=== PATIENT | female | born 1955 | race Caucasian/White ===

== ENCOUNTER 2018-10-26 19:52 | Emergency (ER) | payer MEDICARE, MEDICAID ==
[~2018-10-26] VITALS: Ht 172.7 cm; Wt 90.0 kg
[~2018-10-26 19:52] MED LIST: ALBU8.5H8 IH; ASPI81TA52 PO; CODE118S4 PO; GABA-530 PO; HYDR-4353 PO; IPRA3AMP9 NEB; LORA0.5T PO; METO25TA6 PO; NITR0.4T48 SL; SIMV10TA6 PO
[2018-10-26 20:12] VITALS: BP 138/97
[2018-10-26] MEDS ORDERED: HYDROcodone/acetaminophen 10/325mg tab PO ONE (20:35)
[2018-10-26] MEDS ORDERED: ketorolac trometh. 30mg/ml inj. IM ONE (20:35)
[2018-10-26] MEDS ORDERED: acetaminophen 325mg tablet PO ONE (20:35)
[2018-10-26] MEDS ORDERED: HYDR-4353 PO (20:38)
== END 2018-10-26 21:12 | disposition home or self-care (01) ==
LOC: ER 19:53
DX: M25.551 Pain in right hip (principal); G89.29 Other chronic pain; F15.90 Other stimulant use, unspecified, uncomplicated; Z56.0 Unemployment, unspecified; Z87.09 Personal history of other diseases of the respiratory system; Z79.82 Long term (current) use of aspirin; Z79.899 Other long term (current) drug therapy
CPT/HCPCS: 96372; 99283; J1885

== ENCOUNTER 2023-07-20 10:21 | Emergency (ER) | payer BC, MEDICAID ==
[~2023-07-20] VITALS: Ht 170.2 cm; Wt 81.4 kg
[~2023-07-20 10:21] MED LIST changes: +ALBU8.5H17 IH; -ALBU8.5H8 IH; +BACL10TA2 PO; +CHOL10006 PO; -CODE118S4 PO; +CRAN450T4 PO; +DOCU-391 PO; +FLUT1BLS16 INH; -GABA-530 PO; +GABA300C PO; +GUAI600T45 PO; +IBUP-1986 PO; +IPRA3AMP31 IH; -IPRA3AMP9 NEB; -LORA0.5T PO; -METO25TA6 PO; +MIRA25TA PO; -NITR0.4T48 SL; +SENN15TA PO; +SERT-434 PO; -SIMV10TA6 PO; +SIMV10TA98 PO; +TRAZ-251 PO
[2023-07-20 10:24] VITALS: BP 141/78; TEMP 98.8
[2023-07-20 11:31] LABS: BILIRUBIN,URINE NEGATIVE (Neg); CLARITY,URINE CLEAR (Clear); COLOR,URINE YELLOW (Yellow); GLUCOSE, URINE NEGATIVE (Neg); KETONES,URINE NEGATIVE (Neg); LEUKOCYTE ESTERASE ,URINE SMALL (Neg); NITRITES, URINE POSITIVE (Neg); OCCULT BLOOD,URINE NEGATIVE (Neg); PROTEIN,URINE NEGATIVE (Neg); UROBILINOGEN,URINE 0.2 E.U/dL (0.2-1.0)
[2023-07-20 11:35] LABS: UA COLLECTION TYPE CLN CATCH MIDSTREAM
[2023-07-20 11:36] LABS: BACTERIA,URINE 2+ /HPF (Neg); MUCUS STRANDS FEW /LPF (Neg); RBC,URINE 0-2 /HPF (0-2); SQUAMOUS EPITHELIAL CELL,UR FEW /LPF (FEW)
[2023-07-20] MEDS: albuterol 2.5 MG/3 ML nebule NEB ONE (12:41)
[2023-07-20 12:45] VITALS: PULSE 60; PULSE 69; RESP 22; O2SAT 96; O2SAT 99
[2023-07-20] MEDS ORDERED: ALB0.5UD NEB (12:48)
[2023-07-20] MEDS ORDERED: AMOX-580 PO (12:48)
== END 2023-07-20 13:08 | disposition home or self-care (01) ==
LOC: ER 10:21
DX: J44.1 Chronic obstructive pulmonary disease with (acute) exacerbation (principal); N39.0 Urinary tract infection, site not specified; F15.90 Other stimulant use, unspecified, uncomplicated; Z79.899 Other long term (current) drug therapy; Z79.2 Long term (current) use of antibiotics; Z79.82 Long term (current) use of aspirin
CPT/HCPCS: 81001; 87088; 94640; 94760; 99284

== ENCOUNTER 2024-12-05 18:18 | Emergency (ER) | payer MEDICARE, MEDICAID ==
[~2024-12-05] VITALS: Ht 167.6 cm; Wt 77.3 kg
[2024-12-05 18:21] VITALS: BP 150/78; PULSE 68; O2SAT 93
--- NOTE | 2024-12-05 20:32 | Physician Documentation ---
History of Present Illness ~ Chief Complaint: Back Pain Stated Complaint: BACK PAIN Time Seen by MD: 19:48 Primary Medical Doctor: MINA SOTOMAYOR Source: patient Mode of Arrival: EMS Exam Limitations: no limitations HPI With history of lumbar spine surgery January 2024 presents secondary to right- sided lower back pain. She states that pain exacerbated yesterday. She woke up with it. Denies trauma. Pain is on the entire right side of her body from her shoulder to her buttock. She has no urinary symptoms. She denies incontinence or retention. States she was at her primary care provider's office on November 25 and received a Toradol shot for similar symptoms. Medication Reconciliation Allergies: Coded Allergies: No Known Allergies (Unverified , 07/20/23) Scheduled Aspirin (Aspirin EC), 1 TABLET PO QAM, (Reported) Baclofen (Baclofen), 1 TAB PO BID, (Reported) Cholecalciferol (Vitamin D), Unknown Dose PO DAILY, (Reported) Cranberry Extract (Cranberry), Unknown Dose PO DAILY, (Reported) Docusate Sodium (Docusate Sodium), 2 CAP PO DAILY, (Reported) Fluticasone/Umeclidin/Vilanter (Trelegy Ellipta 200-62.5-25), 1 PUFFS INH DAILY, (Reported) Gabapentin (Neurontin), 1 CAP PO BID, (Reported) Guaifenesin (Mucinex), 600 MG PO Q12H Ibuprofen (Ibuprofen), 1 TAB PO BID, (Reported) Mirabegron (Myrbetriq), 1 TAB PO DAILY, (Reported) Sertraline HCl (Sertraline HCl), 1 TAB PO DAILY, (Reported) Simvastatin (Simvastatin), 1 TABLET PO HS, (Reported) Scheduled PRN Albuterol Sulfate (Proair Hfa), 2 PUFFS IH Q4H PRN for SOB or wheezing, (Reported) Hydrocodone Bit/Acetaminophen ([place] 10-325 Tablet), 1 TAB PO BID PRN for moderate or severe pain, (Reported) Ipratropium/Albuterol Sulfate (Duoneb 2.5-0.5 Mg/3 Ml Soln), 3 ML IH Q4H PRN for SOB or wheezing Sennosides (Ex-Lax), 2 DAY PO DAILY PRN for constipation, (Reported) Trazodone HCl (Trazodone HCl), 1 TAB PO HS PRN for insomnia, (Reported) Past Medical History Past Medical History: COPD, Emphysema, Pneumonia, Chronic Pain Past Surgical History: orthopedic surgeries Patient History: Patient reports no known family medical history. Alcohol Use: None Lives with: Spouse Lives In: Home Occupation: unemployed Review of Systems ROS Review of systems negative except documented in HPI. Physical Exam Physical Exam Vital Signs: Temperature: 97.8, Source: Oral, Heart Rate: 68, Respiratory Rate: 22, BP: 150/78, Pulse Oximetry: 93, Weight: 77.270 Oxygen Flow Rate: 0 Pulse Oximetry Reflects: adequate oxygenation Physical Exam General: Awake, alert, oriented. No apparent distress Respiratory: Lungs are clear to auscultation bilaterally. No respiratory distress. Chest: Normal shape and size. No accessory muscle use. Cardiovascular: Regular rate and rhythm. S1-S2. No murmur, gallop, rub. Gastrointestinal: Abdomen is soft. Nontender to palpation. Bowel sounds present. Back: No rashes on inspection. No lumbar/thoracic point tenderness or step off. No obvious deformity. Muscle strength LE is normal and equal bilaterally. ROM was limited by pain on exam. Patellar reflex is normal. Neurologic: Alert and oriented x4. Nonfocal. Moving all extremities. Psychiatric: Normal mood and affect. Skin: Normal color. Warm and dry. Progress Progress Note Patient was re-evaluated after receiving pain medicaiton. she reported improvement in symptoms and requested to go home,. Results/Orders Results/Orders Completed Orders - JAMISON RIVERS NP Ketorolac Trometh 15mg/Ml Vial (Toradol (12/05/24 20:30) Hydrocodone/Apap 10/325 ([place] 10/325mg (12/05/24 20:30) Baclofen Tablet (Lioresal Tablet) (12/05/24 21:25) Morphine 4mg/Ml Inj. (Morphine Inj.) (12/05/24 22:02) Vital Signs 12/05/24 12/05/24 12/05/24 12/05/24 18:21 20:45 20:46 22:26 Temp 97.8 97.8 Pulse 68 Resp 22 18 18 B/P (MAP) 150/78 Pulse Ox 93 O2 Flow Rate 0 EKG/XRAY/CT/US/VASC/MRI CT : Interpreted By: self CT: L-spine With Contrast?: No Impression [address], [facility] [address] CAT SCAN Patient: JOSE ROBERTO PIERRE Medical Record: [id number] [facility] : 1955, Age: 69 Sex: Female Location: ER Patient Status: [facility] ER Service Date/Time: 12/05/241905 Ordering Physician: COCO GARCIA DO Exam: CT LUMBAR SPINE EXAM: CT CT LUMBAR SPINE INDICATION: pain backyard TECHNIQUE: Axial images of the lumbar spine have been obtained along with coronal and sagittal reformatted images. CT scans at this facility use dose modulation, iterative reconstruction, and/or weight based dosing when appropriate to reduce radiation dose to as low as reasonably achievable. COMPARISON: None FINDINGS: ANATOMY: Five lumbar-type vertebral bodies are present. The most inferior well- formed disc space will be referred to as L5-S1 for purposes of numbering in this report. VERTEBRAL BODIES: No CT evidence of an acute fracture. Posterior and anterior fusion from L4-S1. No osseous lucency along the hardware bone interfaces. No perihardware fracture. Relative bony foraminal narrowing most conspicuous at L3- 4 and L4-5 SPINAL CANAL: No spinal canal narrowing. INTERVERTEBRAL DISCS: Trace posterior disc osteophyte complex at L1-2, L2-3. FACETS: Multilevel mild facet arthropathy. OTHER: Sigmoid diverticulosis. Left renal sinus cysts. Vascular calcifications. IMPRESSION: 1. No CT evidence of an acute fracture. 2. Posterior and anterior fusion from L4-S 3. Relative bony foraminal narrowing most conspicuous at L3-4 and L4- Electronically Signed by:RINKU BELTRAN MD Date & Time: 12/05/242043 Dictated by: RINKU BELTRAN MD Dictation date and time: 12/05/242043 Primary Care Provider: NO PRIMARY CARE PROVIDER cc: VELVETKATHERINCOCO M DO ~ Medical Decision Making Findings Patient presents secondary to back pain which is chronic for her. She did undergo a CT scan given her recent surgery with no acute surgical emergency at this time. Not taken her home pain medication since this morning. She therefore was given her usual medications which included [place] and baclofen. Additionally she was given a shot of Toradol. These did not significantly help her pain and she therefore was given a shot of IM morphine. She reported improvement in her symptoms and was able to ambulate out of the emergency department. In fact, she had requested to go home. She was educated not to drive. Questions answered. Discharge from the emergency department in stable condition. Patient exhibit any signs of acute spinal emergency. Low clinical suspicion for acute fracture given lack of trauma. No current evidence for cauda equina as there are no urinary or bowel incontinence or retention. No complaints of pares thesia to the perineal area when asked. Low clinical suspicion for abdominal aortic aneurysm, pulmonary embolism given location and description of pain. No evidence of pyelonephritis she is afebrile. She did not have CVA tenderness on exam. Suspect acute exacerbation of her chronic pain. Was provided with pain control and on reassessment had improvement in symptoms. Departure Time of Disposition: 22:24 Disposition: 01 HOME / SELF CARE / HOMELESS Impression: Primary Impression: Low back pain Qualified Codes: M54.50 - Low back pain, unspecified; G89.29 - Other chronic pain Condition: Stable Discharge Instructions: Chronic Back Pain Additional Instructions: CT scan did not reveal any acute abnormality of the back. Please follow up with your doctor with regards to your back pain. Please return for new or worsening s ymptoms. Referrals: NO PRIMARY CARE PROVIDER (PCP) Signature Scribe Signature: No scribe Attestation: The note accurately reflects work and decisions made by me.Jamison Sales NP 12/06/24 16:02 This note was created with the assistance of voice recognition software whereby errors in grammar, syntax, and/or spelling may have occurred despite active proofreading efforts by the author. Please do not hesitate to contact the [facility] for clarification or for questions regarding the content of this document. JAMISON RIVERS NP Dec 05, 2024 20:32
[2024-12-05] MEDS: HYDROcodone/acetaminophen 10/325mg tab PO ONE (20:45)
[2024-12-05 20:46] VITALS: RESP 18
[2024-12-05] MEDS: ketorolac trometh 15mg/ml vial 15 MG/ML ML IM ONE (20:46)
--- NOTE | 2024-12-05 20:46 | RADIOLOGY REPORT ---
EXAM: CT CT LUMBAR SPINE INDICATION: pain backyard TECHNIQUE: Axial images of the lumbar spine have been obtained along with coronal and sagittal reformatted images. CT scans at this facility use dose modulation, iterative reconstruction, and/or weight based dosing when appropriate to reduce radiation dose to as low as reasonably achievable. COMPARISON: None FINDINGS: ANATOMY: Five lumbar-type vertebral bodies are present. The most inferior well- formed disc space will be referred to as L5-S1 for purposes of numbering in this report. VERTEBRAL BODIES: No CT evidence of an acute fracture. Posterior and anterior fusion from L4-S1. No osseous lucency along the hardware bone interfaces. No perihardware fracture. Relative bony foraminal narrowing most conspicuous at L3- 4 and L4-5 SPINAL CANAL: No spinal canal narrowing. INTERVERTEBRAL DISCS: Trace posterior disc osteophyte complex at L1-2, L2-3. FACETS: Multilevel mild facet arthropathy. OTHER: Sigmoid diverticulosis. Left renal sinus cysts. Vascular calcifications. IMPRESSION: 1. No CT evidence of an acute fracture. 2. Posterior and anterior fusion from L4-S 3. Relative bony foraminal narrowing most conspicuous at L3-4 and L4-
[2024-12-05] MEDS: morphine 4 MG/ML inj SYRINge IM STA (22:14)
[2024-12-05 22:26] VITALS: TEMP 97.8
== END 2024-12-05 22:32 | disposition home or self-care (01) ==
LOC: ER 18:19
DX: M54.50 Low back pain, unspecified (principal); G89.29 Other chronic pain; Z87.01 Personal history of pneumonia (recurrent); Z79.899 Other long term (current) drug therapy; Z79.82 Long term (current) use of aspirin; Z56.0 Unemployment, unspecified; Z98.890 Other specified postprocedural states
CPT/HCPCS: 72131; 96372; 99285; J1885; J2270

== ENCOUNTER 2025-02-16 12:21 | Emergency (ER) | payer MEDICARE, MEDICAID ==
[~2025-02-16] VITALS: Ht 167.6 cm; Wt 92.0 kg
[2025-02-16 12:26] VITALS: BP 116/70; PULSE 94; O2SAT 95
--- NOTE | 2025-02-16 14:20 | Physician Documentation ---
History of Present Illness ~ Chief Complaint: Back Pain Stated Complaint: FALL/LOWER BACK PAIN Time Seen by MD: 14:07 OK to notify your PCP?: Yes Primary Medical Doctor: MINA mays Source: patient Mode of Arrival: EMS Exam Limitations: no limitations HPI This is a 69-year-old female who comes in complaining of pain in the low back and left hip after a fall last night. The patient states she was walking over to a neighbor's house and went to step up on a step and lost her footing falling backwards onto her back. She states initially she was not having much pain however the pain has gotten worse throughout the night . She denies hitting her head or KO. She was able to get up and ambulate after the fall last night. Medication Reconciliation Allergies: Coded Allergies: No Known Allergies (Unverified , 02/16/25) Scheduled Aspirin (Aspirin EC), 1 TABLET PO QAM, (Reported) Baclofen (Baclofen), 1 TAB PO BID, (Reported) Cholecalciferol (Vitamin D), Unknown Dose PO DAILY, (Reported) Cranberry Extract (Cranberry), Unknown Dose PO DAILY, (Reported) Docusate Sodium (Docusate Sodium), 2 CAP PO DAILY, (Reported) Fluticasone/Umeclidin/Vilanter (Trelegy Ellipta 200-62.5-25), 1 PUFFS INH DAILY, (Reported) Gabapentin (Neurontin), 1 CAP PO BID, (Reported) Guaifenesin (Mucinex), 600 MG PO Q12H Ibuprofen (Ibuprofen), 1 TAB PO BID, (Reported) Mirabegron (Myrbetriq), 1 TAB PO DAILY, (Reported) Sertraline HCl (Sertraline HCl), 1 TAB PO DAILY, (Reported) Simvastatin (Simvastatin), 1 TABLET PO HS, (Reported) Scheduled PRN Albuterol Sulfate (Proair Hfa), 2 PUFFS IH Q4H PRN for SOB or wheezing, ( Reported) Hydrocodone Bit/Acetaminophen ([place] 10-325 Tablet), 1 TAB PO BID PRN for moderate or severe pain, (Reported) Ipratropium/Albuterol Sulfate (Duoneb 2.5-0.5 Mg/3 Ml Soln), 3 ML IH Q4H PRN for SOB or wheezing Sennosides (Ex-Lax), 2 DAY PO DAILY PRN for constipation, (Reported) Trazodone HCl (Trazodone HCl), 1 TAB PO HS PRN for insomnia, (Reported) Past Medical History Past Medical History: COPD, Emphysema, Pneumonia, Chronic Pain Past Surgical History: orthopedic surgeries Patient History: Patient reports no known family medical history. Alcohol Use: None Lives with: Spouse Lives In: Home Occupation: unemployed Physical Exam Physical Exam Vital Signs: Temperature: 98.5, Source: Oral, Heart Rate: 94, Respiratory Rate: 16, BP: 116/70, Pulse Oximetry: 95, Weight: 92.000 Oxygen Flow Rate: 3.0 General Appearance: alert, WD/WN, no apparent distress Back There is tenderness to palpation of the left paraspinal muscles of the lumbar spine extending into the left hip. No midline step-off deformity or point tenderness of the lumbar spine. Extremities Inspection of the left hip in the left lower extremity there was no obvious trauma. There was no external rotation and shortening or internal rotation and lengthening. There is some tenderness to palpation along with the lateral and posterior aspect of the hip. There is pain with manipulation of the hip however no obvious deformity or to range of motion deficits. The pelvic girdle is stable. The distal femur is nontender to palpation without deformity. Progress Results/Orders Results/Orders Orders - GABBIE GALLAGHER Hip Unilateral 2-3 Views (02/16/25 14:16) Lumbar Spine Limited (02/16/25 14:16) Completed Orders - GABBIE GALLAGHER Ketorolac Trometh 15mg/Ml Vial (Toradol (02/16/25 14:20) Hip Unilateral 2-3 Views (02/16/25 14:16) Lumbar Spine Limited (02/16/25 14:16) Medications Received in ER Medications (Trade) Dose Ordered Sig/Suhas Route PRN Reason Start Time Stop Time Status Last Admin Dose Admin (Toradol injection) 15 mg ONCE ONCE IV 02/16/25 14:20 02/16/25 14:23 DC 02/16/25 14:49 15 MG Vital Signs 02/16/25 02/16/25 12:26 14:49 Temp 98.5 Pulse 94 Resp 16 17 B/P (MAP) 116/70 Pulse Ox 95 O2 Flow Rate 3.0 Medical Decision Making Additional information obtaine: N/A Findings X-rays did not show evidence of fracture of the hip, pelvis or lumbar spine. I discussed this with the patient and the patient's caregiver. The patient states she lives alone but has a caregiver there most of the time and does have a walker. They can sentences that has state that has some the patient home. I instructed her to apply cold compresses to all sore areas for 20 minutes every 2 hours for the 1st few days. You can take ibuprofen for lesser pain and [place] for strong pain though I told her to you be careful with the [place] and make sure she has somebody with her while she takes the [place]. Follow up with the primary care physician for recheck in the next one or two days and return to the ER for any worsening or concerning symptoms Differential Dx:Considerations: Musculoskeletal pain Differential Diagnosis Low back contusion. Rule out vertebral body fracture. Left hip contusion. Left left hip fracture. Pelvic fracture Departure Disposition: HOME / SELF CARE / HOMELESS Impression: Primary Impression: Contusion of left hip Additional Impression: Contusion of lower back Condition: Stable Discharge Instructions: Contusion Additional Instructions: Apply cold compresses to all sore areas for 20 minutes every 2 hours with the 1st few days and rest. Use your walker at home. I will prescribe [place] for strong pain and you can take ibuprofen for lesser pain. Follow up with the your primary care physician for recheck in the next couple of days and return to the ER for any worsening or concerning symptoms Referrals: NO PRIMARY CARE PROVIDER (PCP) Prescriptions Ibuprofen (Ibu) 600 Mg Tablet 1 TAB PO Q6H, #20 TAB 0 Refills Prov: GABBIE GALLAGHER 02/16/25 Hydrocodone Bit/Acetaminophen 5/325 MG ([place] 5/325 MG) 5 Mg/325 Mg Tablet 1 TAB PO Q4H PRN for moderate or severe pain, #20 TAB Prov: GABBIE GALLAGHER 02/16/25 Signature Scribe Signature: No scribe Attestation: The note accurately reflects work and decisions made by me.Gabbie CONLEY 02/16/25 15:50 GABBIE GALLAGHER Feb 16, 2025 14:20
[2025-02-16 14:49] VITALS: RESP 17
[2025-02-16] MEDS: ketorolac trometh 15mg/ml vial 15 MG/ML ML IV ONE (14:49)
--- NOTE | 2025-02-16 15:12 | RADIOLOGY REPORT ---
CLINICAL INDICATION: Fall/pain LEFT TECHNIQUE: DI HIP UNILATERAL 2-3 VIEWS COMPARISON: None FINDINGS/IMPRESSION: : There is no evidence of acute fracture or dislocation. Soft tissues are unremarkable. Lumbosacral spinal fixation hardware. Moderate degenerative changes of bilateral hips.
--- NOTE | 2025-02-16 15:33 | RADIOLOGY REPORT ---
INDICATION: Fall/pain TECHNIQUE: 4 views of the lumbar spine were obtained. COMPARISON: CT CT LUMBAR SPINE on DOS: 12/05/24 FINDINGS: 7 mm retrolisthesis of L2 with respect L3. No acute vertebral body fracture. Orthopedic hardware appears intact. Intervertebral body disc prosthesis of the L4-5 and L5-S1 levels are well position. IMPRESSION: 1. No acute fracture.
[2025-02-16] MEDS ORDERED: IBUP-862 PO (15:48)
[2025-02-16] MEDS ORDERED: HYDR-3965 PO (15:48)
[2025-02-16 16:15] VITALS: TEMP 98.5
== END 2025-02-16 16:16 | disposition home or self-care (01) ==
LOC: ER 12:21
DX: S30.0XXA Contusion of lower back and pelvis, initial encounter (principal); S70.02XA Contusion of left hip, initial encounter; J44.9 Chronic obstructive pulmonary disease, unspecified; G89.29 Other chronic pain; Z87.01 Personal history of pneumonia (recurrent); Z79.82 Long term (current) use of aspirin; Z79.899 Other long term (current) drug therapy; Z98.890 Other specified postprocedural states; Z56.0 Unemployment, unspecified; W18.39XA Other fall on same level, initial encounter; Y93.01 Activity, walking, marching and hiking; Y92.89 Other specified places as the place of occurrence of the external cause; Y99.8 Other external cause status
CPT/HCPCS: 72100; 73502; 96374; 99284; J1885